=== PATIENT | female | born 1985 | race Caucasian/White ===

== ENCOUNTER 2016-10-06 05:48 | Inpatient (IN) | payer OTHER ==
[~2016-10-06 05:48] MED LIST: Buffered Lidocaine 1% SYRIN* 3 ML/SYR SYRINGE INTRADERM ONE; Sodium Citrate/Citric Acid* 15 ML UDC PO ONE
[2016-10-06] MEDS ORDERED: ceFOXitin 2 GM IVPREMIX* 2 GM/50 ML BAG ONE (06:45)
[2016-10-06] MEDS ORDERED: Morphine PF AMP (0.5MG/ML)* 5 MG/10 ML AMP ONE (07:33)
[2016-10-06] MEDS ORDERED: OXYTOCIN* 10 UNITS/ML 1 ML VIAL ONE (07:33)
[2016-10-06] MEDS ORDERED: Phenylephrine IV* 40 MCG/ML 10 ML SYRINGE ONE (07:33)
[2016-10-06] MEDS ORDERED: Ondansetron INJ* 2 MG/ML VIAL IV PRN (07:39)
[2016-10-06] MEDS ORDERED: fentaNYL* 50 MCG/ML 2 ML VIAL (100 MCG VIAL) IV PRN (07:39)
[2016-10-06] MEDS ORDERED: diPHENhydraMINE IV* 50 MG/ML 1 ml VIAL (BENADRYL) IV PRN (08:56)
[2016-10-06] MEDS ORDERED: Naloxone* 0.4 MG/ML 1 ML VIAL IV PRN (08:56)
[2016-10-06] MEDS ORDERED: oxyCODONE/Acetamin 5/325 MG* TAB PO PRN ×2 (08:56)
[2016-10-06] MEDS ORDERED: Oxytocin in LR* 20 UNITS/1,000 ML BAG IVPB ONE (09:42)
[2016-10-06] MEDS ORDERED: Dibucaine 1% 28.35 GM TUBE PR PRN (09:44)
[2016-10-06] MEDS ORDERED: Glycerin ADULT SUPP PR PRN (09:44)
[2016-10-06] MEDS ORDERED: Acetaminophen TAB* 325 MG PO PRN (09:44)
[2016-10-06] MEDS ORDERED: Witch Hazel PAD* JAR TOPICAL PRN (09:44)
[2016-10-06] MEDS ORDERED: RHO D Immune Globulin (HUMAN)* 300 MCG = 1,500 I.U. INJ IM ONE (09:50)
[2016-10-06] MEDS ORDERED: Oxytocin in LR* 20 UNITS/1,000 ML BAG IVPB SCH (10:00)
[2016-10-06] MEDS: Ketorolac INJ* 30 MG/ML 1 ML VIAL IV PRN (11:00)
[2016-10-06] MEDS: Ondansetron INJ* 2 MG/ML VIAL IV PRN ×2 (11:50→17:41)
[2016-10-06] MEDS ORDERED: Scopolamine 1.5 mg* PATCH ONE (13:17)
[2016-10-06] MEDS: Simethicone CHEW TAB* 80 MG PO SCH ×3 (13:46→21:09)
[2016-10-06] MEDS: Docusate CAP* 100 MG PO SCH ×2 (16:41→21:08)
[2016-10-07] MEDS ORDERED: oxyCODONE/Acetamin 5/325 MG* TAB PO PRN (00:30)
--- NOTE | 2016-10-07 03:12 | OP ---
DATE OF OPERATION: 10/06/16 - ROOM #[id number] DATE OF : 87 SURGEON: Dr. Radha Cali. TYPING POOL SUPERVISOR: Dr. Martha Arias. ANESTHESIOLOGIST: Dr. Whitmore. ANESTHESIA: Spinal. PRE-OP DIAGNOSIS: Repeat low transverse section, desires repeat section, intrauterine 39 plus weeks. POST-OP DIAGNOSIS: Repeat low transverse section, desires repeat section, intrauterine 39 plus weeks, delivered. OPERATIVE PROCEDURE: Repeat low transverse section. ESTIMATED BLOOD LOSS: 600 cc. FLUIDS: 3000 cc of crystalloids. URINE OUTPUT: 100 cc of clear yellow urine. FINDINGS: Revealed a vertex male with Apgars 9 at one minute and 9 at five minutes, weight was 7 pounds 10 ounces. Nuchal cord x1. No meconium. Normal appearing placenta. Manually extracted intact three-vessel cord. Normal appearing tubes and ovaries. Normal uterine cavity explored, noted to be with no evidence of retaining placental tissue or membranes. COMPLICATIONS: None apparent. DISPOSITION: Stable to recovery room. DESCRIPTION OF PROCEDURE: The patient was placed in the dorsal lithotomy position. Anesthesia was tested to appropriate level after prep and drape of the abdomen was performed. The patient was identified with universal time-out. An incision was made through prior incision with a scalpel, this was carried down through the fascia. The fascia was scored in the midline, extended laterally and superiorly using curved Ko scissors. Fascia was superiorly and inferiorly with blunt and sharp dissection. The peritoneum was then entered bluntly. The bladder blade was inserted. Allis was used to tent up the lower uterine segment. An incision was made with scalpel, this was carried down through to the membranes. Incision was extended laterally and superiorly using bandage scissors. An amniotomy was created for clear fluid. The head was delivered BOO. Nuchal cord x1 reduced. Anterior and then posterior shoulder delivered. Cord was clamped after 30 seconds and milked prior to clamping. Cord clamped was applied. Hemostat was placed for bleeding. The cord was transected and the infant was then handed off to the awaiting word processing machine operator. Appropriate cord blood was then obtained. The placenta was then manually extracted, noted to be intact three-vessel cord. The uterus was exteriorized. The uterine cavity was wiped clean and noted to be free of any membranes or placental tissue. Tubes and ovaries were noted to have a normal appearance. The uterine incision itself was reapproximated in two layers. First layer with a running locked 0 Vicryl, second layer running imbricated 0 Vicryl. The uterus was returned intraabdominally. The colic gutters were lavaged. Tubes and ovaries as I had said noted to have a normal appearance. There was no evidence of adhesions. The peritoneum was then reapproximated using 3-0 Vicryl in a running fashion. Subfascial area was visualized and noted to be hemostatic and the fascia itself was reapproximated using 0 Vicryl x2 in a running fashion. The subfascial area was visualized and hemostasis assured with Bovie coagulation. The subcutaneous layer was then reapproximated in an interrupted fashion using 0 Vicryl for complete closure of the subcutaneous area. The skin was then reapproximated using a 4-0 Polysorb in a subcuticular fashion. Mastisol and Steris were applied. All sponge, needle , instrument, and blade counts were correct throughout the case. The patient tolerated the procedure well and went to recovery room in stable condition. [id number]/[facility] #: [id number] [facility]ITAL[facility]
[2016-10-07] MEDS: Ketorolac INJ* 30 MG/ML 1 ML VIAL IV PRN (04:15)
[2016-10-07 08:11] LABS: Hematocrit 32 % (35-47); Hemoglobin 10.6 g/dl (12.0-16.0); Mean Corpuscular HGB Conc 33 g/dl (31-36); Mean Corpuscular Hemoglobin 31 pg (27-31); Mean Corpuscular Volume 93 fL (80-97); Mean Platelet Volume 10 um3 (7.4-10.4); Red Blood Count 3.42 10^6/ul (4.0-5.4); Red Cell Distribution Width 14 % (10.5-15); White Blood Count 14.7 10^3/ul (3.5-10.8)
[2016-10-07] MEDS ORDERED: Measles, Mumps,Rubella VACC* 0.5 ML/VIAL SUBCUT ONE (09:00)
[2016-10-07] MEDS ORDERED: Ferrous Gluconate TAB* 324 MG TAB PO SCH (09:00)
[2016-10-07] MEDS: Simethicone CHEW TAB* 80 MG PO SCH ×4 (09:27→20:59)
[2016-10-07] MEDS: Prenatal Vitamin TAB PO SCH (09:27)
[2016-10-07] MEDS: Docusate CAP* 100 MG PO SCH ×3 (09:27→20:59)
[2016-10-07] MEDS ORDERED: Ibuprofen TAB* 600 MG ONE (10:27)
[2016-10-07] MEDS: oxyCODONE/Acetamin 5/325 MG* TAB PO PRN ×2 (15:55→19:54)
[2016-10-07] MEDS: Ibuprofen TAB* 600 MG PO PRN (16:27)
[2016-10-07 19:54] VITALS: BP 110/63
[2016-10-08] MEDS: Ibuprofen TAB* 600 MG PO PRN ×2 (00:03→08:45)
[2016-10-08] MEDS: oxyCODONE/Acetamin 5/325 MG* TAB PO PRN ×2 (07:08→14:06)
[2016-10-08] MEDS: Prenatal Vitamin TAB PO SCH (08:45)
[2016-10-08] MEDS: Simethicone CHEW TAB* 80 MG PO SCH ×2 (08:45→12:04)
[2016-10-08] MEDS: Docusate CAP* 100 MG PO SCH ×2 (08:45→14:06)
[2016-10-09] MEDS ORDERED: Scopolomine PATCH Remove* 1 NOTE MISC PATCH OFF ONE (13:30)
== END 2016-10-08 15:11 | disposition home or self-care (01) | DRG 766 ==
LOC: MCHOB 05:48
PROVIDERS: ADMIT Obstetrics & Gynecology; ATTEND Obstetrics & Gynecology
PROC: 10D00Z1 Extraction of Products of Conception, Low, Open Approach (ICD-10-PCS; principal; 2016-10-06 07:45)
DX: O34.211 Maternal care for low transverse scar from previous cesarean delivery (principal); Z37.0 Single live birth; Z3A.39 39 weeks gestation of pregnancy
CPT/HCPCS: 36415; 85025; 85461; 86900; 86901; 90707; A9270-GY; J0694; J1200; J1885; J2405; J2590; J2790